=== PATIENT | male | born 1990 | race Caucasian/White ===

== ENCOUNTER 2021-10-25 21:47 | Emergency (ER) | payer SELFPAY ==
[~2021-10-25] VITALS: Ht 185.4 cm; Wt 86.0 kg
[2021-10-25 21:56] VITALS: BP 115/72
[2021-10-26] MEDS ORDERED: ACETAMINOPHEN 325MG TABLET PO ONE (01:30)
[2021-10-26] MEDS ORDERED: CEPH500C2 MT (02:15)
[2021-10-26] MEDS ORDERED: SULF1TAB48 MT (02:15)
== END 2021-10-26 02:30 | disposition home or self-care (01) ==
LOC: ER 21:47
DX: Z48.02 Encounter for removal of sutures (principal); M79.641 Pain in right hand; Z71.89 Other specified counseling
CPT/HCPCS: 99283; Z7610; 99282

== ENCOUNTER 2021-10-27 21:17 | Emergency (ER) | payer SELFPAY ==
[~2021-10-27] VITALS: Ht 182.9 cm; Wt 73.1 kg
[~2021-10-27 21:17] MED LIST: CEPH500C2 MT; SULF1TAB48 MT
[2021-10-27] MEDS ORDERED: IBUPROFEN 600MG TABLET PO ONE (22:30)
[2021-10-27] MEDS ORDERED: DIPHENHYDRAMINE 25MG CAPSULE PO ONE (22:30)
[2021-10-27 22:47] VITALS: BP 121/89
[2021-10-27 23:36] LABS: CHLORIDE 108 mEq/L (98-107)
[2021-10-27 23:46] LABS: HEMATOCRIT 44.6 % (42.0-52.0); HEMOGLOBIN 15.1 g/dL (14.0-18.0); MEAN CORPUSCULAR HEMOGLOBIN 30.8 pg (28.0-32.0); MEAN CORPUSCULAR VOLUME 91.2 fL (80.0-94.0); PLATELET 172 x1000/uL (130-400); RED BLOOD CELL COUNT 4.89 mill/uL (4.7-6.1); RED CELL DISTRIBUTION WIDTH 14.3 % (11.6-14.6)
[2021-10-28] MEDS ORDERED: POTASSIUM CHLORIDE 20MEQ TABLET SR PO NR (00:30)
== END 2021-10-28 00:54 | disposition home or self-care (01) ==
LOC: ER 21:17
DX: L29.9 Pruritus, unspecified (principal); E87.6 Hypokalemia; N17.9 Acute kidney failure, unspecified; F31.9 Bipolar disorder, unspecified; I10 Essential (primary) hypertension
CPT/HCPCS: 36415; 71045; 80053; 85027; 99284; Q0163